=== PATIENT | female | born 1995 | race Caucasian/White ===

== ENCOUNTER 2017-09-15 17:44 | Emergency (ER) | payer SELFPAY ==
[~2017-09-15] VITALS: Ht 167.6 cm; Wt 110.9 kg
[~2017-09-15 17:44] MED LIST: AMITIZA24 MICROGR PO; DIFLUCAN150 MG PO; NAPROSYN250 MG PO; NAPROXEN500 MG PO; NOHOMEMEDS; PERCOCET 5/31 TABLET PO; PROMETHAZINE HC25 M1 PO; ZOFRAN4 MG PO; no home
[2017-09-15] MEDS ORDERED: CORTIZONE-1028 GM TP (20:08)
[2017-09-15 20:22] VITALS: BP 133/89
== END 2017-09-15 20:23 | disposition home or self-care (01) ==
LOC: EME 17:44
DX: L25.9 Unspecified contact dermatitis, unspecified cause (principal)
CPT/HCPCS: 99281; 99282

== ENCOUNTER 2017-12-10 17:23 | Emergency (ER) | payer SELFPAY ==
[~2017-12-10] VITALS: Ht 170.2 cm; Wt 107.9 kg
[~2017-12-10 17:23] MED LIST changes: +CORTIZONE-1028 GM TP
[2017-12-10 18:22] LABS: HEMATOCRIT 40.5 % (36.0-46.0); HEMOGLOBIN 13.3 G/DL (11.9-15.5); MCH 25.8 PG (29.0-34.0); MCHC 32.8 G/DL (30.0-36.0); MCV 78.5 FL (83-99); PLATELET COUNT 315 K/uL (156-360); RBC DIS.WIDTH-CV 14.3 % (11.8-14.6); RBC DIS.WIDTH-SD 40.8 % (39-53); RED BLOOD COUNT 5.16 M/uL (3.80-5.20); WHITE BLOOD COUNT 7.6 K/uL (4.1-10.2)
[2017-12-10 18:32] LABS: ALBUMIN 4.5 g/dL (3.2-4.8); CHLORIDE 104 mEq/L (99-109); POTASSIUM 3.3 mEq/L (3.7-5.4); SODIUM 137 mEq/L (136-147)
[2017-12-10 18:35] LABS: GLUCOSE 100 mg/dL (70-99); TOTAL PROTEIN 7.8 g/dL (6.4-8.3)
[2017-12-10 18:36] LABS: TOTAL BILIRUBIN 0.6 mg/dL (0.0-1.0)
[2017-12-10 18:37] LABS: APPEARANCE SL.HAZY ((CLEAR)); BILIRUBIN NEGATIVE; BLOOD LARGE; COLOR YELLOW ((YELLOW)); GLUCOSE (STRIP) NEGATIVE; KETONES 5; LEUKOCYTES NEGATIVE; NITRITE NEGATIVE; PROTEIN (STRIP) 30; SPECIFIC GRAVITY 1.029 (1.000-1.030); UROBILINOGEN 0.2 MG/DL (0.2-1.0)
[2017-12-10 18:38] LABS: ALKALINE PHOSPHATASE 71 IU/L (3-129); CREATININE 0.7 mg/dL (0.6-1.3); GFR ESTIMATE (CALCULATED) > 59 mL/min/
[2017-12-10 18:39] LABS: UREA NITROGEN (BUN) 13 mg/dL (9-23)
[2017-12-10 18:40] LABS: AST (GOT) 22 IU/L (2-34)
[2017-12-10 18:41] LABS: ALT (GPT) 26 IU/L (3-49)
[2017-12-10 18:51] LABS: QUANTITATIVE HCG < 4.0 MIU/ML
[2017-12-10 19:02] LABS: BACTERIA 1+ /HPF; EPITHELIAL CELLS 1+ /HPF; MUCUS 1+ /LPF; RED BLOOD CELLS 30-40 /HPF (0-5); UCUL ADDED? NO; WHITE BLOOD CELLS 0-5 /HPF (0-5)
[2017-12-10 22:12] LABS: SOURCE SWAB
[2017-12-10 22:36] LABS: LIPASE 13 U/L (1.0-51.0)
[2017-12-10] MEDS ORDERED: PEPCID20 MG PO (22:50)
[2017-12-10 23:11] VITALS: BP 134/83
== END 2017-12-10 23:12 | disposition home or self-care (01) ==
LOC: EME 17:23
PROVIDERS: Physician Assistant Medical
DX: K29.70 Gastritis, unspecified, without bleeding (principal); J45.909 Unspecified asthma, uncomplicated; E28.2 Polycystic ovarian syndrome
CPT/HCPCS: 80053; 81003; 83690; 84702; 85027; 87210; 87491; 87591; 99281; 99284